=== PATIENT | female | born 1950 | race Caucasian/White ===

== ENCOUNTER 2017-09-12 08:25 | Outpatient (CLI) | payer MEDICARE | END 2017-09-12 08:26 | disposition home or self-care (01) | LOC: MRI 08:25 | PROVIDERS: ATTEND Psychiatry & Neurology Neurology | DX: Z01.812 Encounter for preprocedural laboratory examination (principal); R47.1 Dysarthria and anarthria | CPT/HCPCS: 70553; 82565 ==

== ENCOUNTER 2017-09-14 14:39 | Outpatient (CLI) | payer MEDICARE | END 2017-09-14 14:40 | disposition home or self-care (01) | LOC: BICMAMMO 14:39 | PROVIDERS: ATTEND Internal Medicine Geriatric Medicine | DX: Z08 Encounter for follow-up examination after completed treatment for malignant neoplasm (principal); Z90.11 Acquired absence of right breast and nipple; Z85.3 Personal history of malignant neoplasm of breast | CPT/HCPCS: 77066; G0279 ==

== ENCOUNTER 2017-09-25 07:54 | Outpatient (CLI) | payer MEDICARE ==
--- NOTE | 2017-09-25 10:11 | ULT ---
RIGHT LOWER EXTREMITY VENOUS ULTRASOUND WITH DOPPLER: Date: 09/25/17 HISTORY: Right lower extremity pain. COMPARISON: None. TECHNIQUE: Mcelroy scale, color flow, Doppler imaging, and spectral waveform analysis performed of the right lower extremity deep venous system. FINDINGS: There is compressibility, presence of flow, and augmentation in the common femoral, femoral vein, and popliteal vein. There is flow in greater saphenous vein, profunda vein, and posterior tibial vein. IMPRESSION: No evidence of thrombus in the right lower extremity deep venous system. POS: [facility]
== END 2017-09-25 07:55 | disposition home or self-care (01) ==
LOC: ULT 07:54
PROVIDERS: ATTEND Internal Medicine Geriatric Medicine
DX: M79.604 Pain in right leg (principal)

== ENCOUNTER 2017-09-27 17:15 | Emergency (ER) | payer MEDICARE ==
[2017-09-27 18:12] LABS: #Lymphocytes 0.9 thou/uL (1.20-3.40); #Monocytes 0.3 thou/uL (0.11-0.59); #Neutrophils 4.7 thou/uL (1.40-6.50); %Basophils 0.3 % (0.0-1.0); %Eosinophils 0.2 % (0.0-10.0); %Lymphocytes 14.9 % (21.0-51.0); %Monocytes 5.5 % (0.0-10.0); %Neutrophils 79.1 % (42.0-75.0); Hemoglobin 14.1 g/dL (12.0-16.0); Mean Corpuscular HGB CONC 33.8 g/dL (32.0-36.0); Mean Corpuscular Hemoglobin 33.2 pg (27.0-31.0); Mean Corpuscular Volume 98.2 fL (78.0-98.0); Mean Platelet Volume 7.3 fL (7.4-10.4); Platelet Count 201 thou/uL (130-400); RBC Distribution Width 13.2 % (11.5-14.5); Red Blood Cell (RBC) Count 4.26 mill/uL (4.20-5.40)
[2017-09-27 18:24] LABS: ALT (SGPT) 79 U/L (8-55); AST (SGOT) 60 U/L (5-34); Albumin 4.1 g/dL (3.4-4.8); Alkaline Phosphatase 50 U/L (40-150); Anion Gap 12 mmol/L (10-20); BUN (Urea Nitrogen) 21 mg/dL (9.8-20.1); Bilirubin, Total 0.6 mg/dL (0.2-1.2); Calc. Creatinine Clearance 0 mL/min (70-130); Calcium 9.7 mg/dL (7.8-10.44); Carbon Dioxide 26 mmol/L (23-31); Chloride 104 mmol/L (98-107); Estimated GFR-MDRD 71; Glucose 120 mg/dL (80-115); Potassium 4.2 mmol/L (3.5-5.1); Protein, Total 7.1 g/dL (6.0-8.3); Sodium 138 mmol/L (136-145)
[2017-09-27 18:29] LABS: CKMB 3.2 ng/mL (0-6.6); Troponin I Less than 0.010 ng/mL (< 0.028)
--- NOTE | 2017-09-27 18:45 | RAD ---
RADIOGRAPH CHEST 2 VIEWS: 09/27/17 HISTORY: 66-year-old female with acute chest pain. FINDINGS: The thoracic aorta is tortuous and ectatic. There is no evidence of air space density, pneumothorax, or pulmonary edema. There is no cardiomegaly or pleural effusion. IMPRESSION: 1) No acute cardiopulmonary findings. 2) Ectasia of thoracic aorta. marija [] POS: [facility]
[2017-09-27 19:24] LABS: Bilirubin Negative (Negative); Blood, Urine Trace (Negative); Clarity CLEAR (Clear); Glucose, Urine (Dipstick) Negative (Negative); Leukocyte Trace (Negative); Nitrite Negative (Negative); Protein, Urine (Dipstick) Negative (Neg-Trace); Specific Gravity, Urine 1.004 (1.002-1.036); Urobilinogen 0.2 mg/dL (0.2-1.0)
[2017-09-27 19:34] LABS: RBC/HPF 0-3 HPF (0-3); Squamous Epithelial 0-3 HPF (0-3); WBC/HPF 0-3 HPF (0-3)
[2017-09-27 19:35] LABS: Bacteria/HPF Rare-Few HPF (None Seen); Hyaline Casts/LPF NONE SEEN LPF (0-3 Hyaline)
== END 2017-09-27 21:07 | disposition home or self-care (01) ==
LOC: ERS 17:15
DX: R07.9 Chest pain, unspecified (principal); R10.13 Epigastric pain; F31.9 Bipolar disorder, unspecified; Z79.899 Other long term (current) drug therapy
CPT/HCPCS: 36415; 71046; 80053; 81003; 81015; 82553; 84484; 85025; 93005

== ENCOUNTER 2018-09-16 09:47 | Outpatient (CLI) | payer MEDICARE ==
--- NOTE | 2018-09-16 10:31 | MMO ---
Bilateral MAMMO Bilat Diag [facility]. CLINICAL HISTORY: Patient is 67 years old and is seen for diagnostic exam. The patient has no family history of breast cancer. The patient has a history of malignant (generic) in the right breast in 2013. The patient has a history of right Lumpectomy in 2013 - malignant. VIEWS: The views performed were: bilateral craniocaudal with tomosynthesis; bilateral mediolateral oblique with tomosynthesis; and bilateral mediolateral. FILMS COMPARED: The present examination has been compared to prior imaging studies performed at [facility] on 09/14/2017, and at [facility] on 03/05/2014, 05/28/2015 and 05/29/2016. MAMMOGRAM FINDINGS: There are scattered fibroglandular densities. There are stable benign appearing calcifications seen in both breasts. There are no suspicious masses, suspicious calcifications, or new areas of architectural distortion. IMPRESSION: THERE IS NO MAMMOGRAPHIC EVIDENCE OF MALIGNANCY. A ROUTINE FOLLOW-UP MAMMOGRAM IN 1 YEAR IS RECOMMENDED. THE RESULTS OF THIS EXAM WERE SENT TO THE PATIENT. ACR BI-RADS Category 2 - Benign finding MAMMOGRAPHY NOTE: 1. A negative mammogram report should not delay a biopsy if a dominant of clinically suspicious mass is present. 2. Approximately 10% to 15% of breast cancers are not detected by mammography. 3. Adenosis and dense breasts may obscure an underlying neoplasm.
== END 2018-09-16 09:48 | disposition home or self-care (01) ==
LOC: BICMAMMO 09:47
PROVIDERS: ATTEND Internal Medicine Geriatric Medicine
DX: Z08 Encounter for follow-up examination after completed treatment for malignant neoplasm (principal); Z85.3 Personal history of malignant neoplasm of breast
CPT/HCPCS: 77066; G0279

== ENCOUNTER 2019-03-19 15:06 | Outpatient (CLI) | payer MEDICARE ==
--- NOTE | 2019-03-19 16:05 | MRI ---
MRI BRAIN WITHOUT CONTRAST: HISTORY: Aphasia FINDINGS: No restricted diffusion is seen. There are multiple foci of T2 prolongation in the periventricular wh ite matter, consistent with chronic small vessel ischemic disease. There is ventricular sulci prominence. The ventricular size is appropriate and the basilar cisterns are patent. No evidence of acute infarct, hemorrhage, midline shift or abnormal extra-axial fluid collections is seen. The visualized paranasal sinuses and mastoid air cells are well-aerated. IMPRESSION: No evidence of acute intracranial process.
== END 2019-03-19 15:07 | disposition home or self-care (01) ==
LOC: TBSIIMAG 15:06
PROVIDERS: ATTEND Family Medicine
DX: R47.01 Aphasia (principal)
CPT/HCPCS: 70551

== ENCOUNTER 2019-05-25 17:56 | Emergency (ER) | payer MEDICARE ==
[~2019-05-25 17:56] MED LIST: Iopamidol-370 76% 500 ML 1 ML ONE
[2019-05-25 18:58] LABS: #Lymphocytes 1.3 thou/uL (1.20-3.40); #Monocytes 0.8 thou/uL (0.11-0.59); #Neutrophils 5.9 thou/uL (1.40-6.50); %Basophils 0.6 % (0.0-1.0); %Eosinophils 0.3 % (0.0-10.0); %Lymphocytes 16.5 % (21.0-51.0); %Monocytes 9.7 % (0.0-10.0); Hemoglobin 15.1 g/dL (12.0-16.0); Mean Corpuscular HGB CONC 34.3 g/dL (32.0-36.0); Mean Corpuscular Hemoglobin 34.3 pg (27.0-31.0); Mean Platelet Volume 7.2 fL (7.4-10.4); Platelet Count 244 thou/uL (130-400); RBC Distribution Width 13.2 % (11.5-14.5); White Blood Cell (WBC) Count 8.1 thou/uL (4.8-10.8)
[2019-05-25 19:00] LABS: ALT (SGPT) 35 U/L (8-55); AST (SGOT) 51 U/L (5-34); Albumin 4.1 g/dL (3.4-4.8); Alkaline Phosphatase 47 U/L (40-110); Anion Gap 15 mmol/L (10-20); BUN (Urea Nitrogen) 18 mg/dL (9.8-20.1); Bilirubin, Total 0.4 mg/dL (0.2-1.2); Calc. Creatinine Clearance 0 mL/min (70-130); Carbon Dioxide 26 mmol/L (23-31); Chloride 104 mmol/L (98-107); Estimated GFR-MDRD 63; Globulin 3.4 g/dL (2.4-3.5); Glucose 91 mg/dL (80-115); Lipase 147 U/L (8-78); Potassium 4.8 mmol/L (3.5-5.1); Protein, Total 7.5 g/dL (6.0-8.3); Sodium 140 mmol/L (136-145)
[2019-05-25 19:19] LABS: Bilirubin Negative (Negative); Blood, Urine 1+ (Negative); Clarity Extra Turbid (Clear); Glucose, Urine (Dipstick) Normal (Negative); Leukocyte 25 Leu/uL (Negative); Nitrite Negative (Negative); Protein, Urine (Dipstick) Negative (Neg-Trace); Squamous Epithelial None Seen HPF (0-3); Urobilinogen Normal mg/dL (Less than 2)
[2019-05-25 19:28] LABS: Bacteria/HPF 1+ HPF (None Seen)
--- NOTE | 2019-05-25 19:35 | CT ---
CT abdomen and pelvis with IV contrast HISTORY: Abdominal pain. FINDINGS: No comparison. Lung bases are clear. Gallbladder surgically absent. Small fragments of meta llic shrapnel present within the right liver lobe. No evidence of complication. The spleen, kidneys, adrenal glands, and pancreas are unremarkable. There is calcification throughout the arteria l structures. No enlarged lymph nodes or free fluid. Urinary bladder is incompletely distended. Large amount of stool throughout the colon. No evidence of bowel obstruction. There are degenerative changes throughout the lumbar spine. IMPRESSION: Constipation. Atherosclerosis. No acute abnormalities otherwise demonstrated.
== END 2019-05-25 20:49 | disposition home or self-care (01) ==
LOC: ERS 17:56
DX: K59.00 Constipation, unspecified (principal); F31.9 Bipolar disorder, unspecified; Z79.899 Other long term (current) drug therapy
CPT/HCPCS: 36415; 74177; 80053; 81003; 81015; 83690; 85025; 96360; Q9967

== ENCOUNTER 2019-09-18 10:05 | Outpatient (CLI) | payer MEDICARE ==
--- NOTE | 2019-09-18 11:04 | MMO ---
Bilateral MAMMO Bilat Screen [facility]. CLINICAL HISTORY: Patient is 68 years old and is seen for screening. The patient has no family history of breast cancer. The patient has a history of malignant (generic) in the right breast in 2013. The patient has a history of right Lumpectomy in 2013 - malignant. VIEWS: The views performed were: bilateral craniocaudal with tomosynthesis and bilateral mediolateral oblique with tomosynthesis. FILMS COMPARED: The present examination has been compared to prior imaging studies performed at [facility] on 09/14/2017 and 09/16/2018, and at [facility] on 05/28/2015 and 05/29/2016. This study has been interpreted with the assistance of computer-aided detection. MAMMOGRAM FINDINGS: There are scattered fibroglandular densities. Finding 1: There are stable benign appearing calcifications seen in both breasts. Finding 2: There is a stable post-surgical scar seen in the right breast. There are no suspicious masses, suspicious calcifications, or new areas of architectural distortion. IMPRESSION: THERE IS NO MAMMOGRAPHIC EVIDENCE OF MALIGNANCY. A ROUTINE FOLLOW-UP MAMMOGRAM IN 1 YEAR IS RECOMMENDED. THE RESULTS OF THIS EXAM WERE SENT TO THE PATIENT. ACR BI-RADS Category 2 - Benign finding MAMMOGRAPHY NOTE: 1. A negative mammogram report should not delay a biopsy if a dominant of clinically suspicious mass is present. 2. Approximately 10% to 15% of breast cancers are not detected by mammography. 3. Adenosis and dense breasts may obscure an underlying neoplasm. Reported by: RICH RAMON MD Electonically Signed: [id number]
== END 2019-09-18 10:06 | disposition home or self-care (01) ==
LOC: BICMAMMO 10:05
PROVIDERS: ATTEND Family Medicine
DX: Z12.31 Encounter for screening mammogram for malignant neoplasm of breast (principal); Z85.3 Personal history of malignant neoplasm of breast; Z98.890 Other specified postprocedural states
CPT/HCPCS: 77063; 77067

== ENCOUNTER 2020-09-20 09:52 | Outpatient (CLI) | payer MEDICARE | END 2020-09-20 09:53 | disposition home or self-care (01) | LOC: BICMAMMO 09:52 | PROVIDERS: ATTEND Family Medicine | DX: Z12.31 Encounter for screening mammogram for malignant neoplasm of breast (principal); Z13.820 Encounter for screening for osteoporosis; K59.01 Slow transit constipation; Z85.3 Personal history of malignant neoplasm of breast; Z98.890 Other specified postprocedural states; M85.852 Other specified disorders of bone density and structure, left thigh; M85.851 Other specified disorders of bone density and structure, right thigh | CPT/HCPCS: 77063; 77067; 77080 ==

== ENCOUNTER 2020-09-22 08:29 | Outpatient (CLI) | payer MEDICARE | END 2020-09-22 08:30 | disposition home or self-care (01) | LOC: BICMAMMO 08:29 | PROVIDERS: ATTEND Family Medicine | DX: N63.12 Unspecified lump in the right breast, upper inner quadrant (principal); N62 Hypertrophy of breast; N60.31 Fibrosclerosis of right breast; Q83.9 Congenital malformation of breast, unspecified | CPT/HCPCS: 19083; 76642; 77065; 88305; 88342; G0279 ==

== ENCOUNTER 2021-09-28 07:56 | Inpatient (IN) | payer MEDICARE ==
[2021-09-28] MEDS ORDERED: Ondansetron ODT 4 MG TAB ONE (08:53)
[2021-09-28 09:19] LABS: #Lymphocytes 0.9 thou/uL (1.20-3.40); #Monocytes 0.6 thou/uL (0.11-0.59); #Neutrophils 8.5 thou/uL (1.40-6.50); %Basophils 0.1 % (0.0-1.0); %Eosinophils 0.3 % (0.0-10.0); %Lymphocytes 8.7 % (21.0-51.0); %Monocytes 5.8 % (0.0-10.0); %Neutrophils 85.1 % (42.0-75.0); Hemoglobin 13.7 g/dL (12.0-16.0); Mean Platelet Volume 7.4 fL (7.4-10.4); Platelet Count 217 thou/uL (130-400); White Blood Cell (WBC) Count 9.9 thou/uL (4.8-10.8)
[2021-09-28 09:38] LABS: ALT (SGPT) 47 U/L (8-55); AST (SGOT) 57 U/L (5-34); Albumin 4.3 g/dL (3.4-4.8); Alkaline Phosphatase 57 U/L (40-110); Anion Gap 15 mmol/L (10-20); BUN (Urea Nitrogen) 22 mg/dL (9.8-20.1); Bilirubin, Total 0.5 mg/dL (0.2-1.2); Calc. Creatinine Clearance 0 mL/min (70-130); Calcium 9.5 mg/dL (7.8-10.44); Carbon Dioxide 24 mmol/L (23-31); Chloride 106 mmol/L (98-107); Estimated GFR 67; Globulin 3.4 g/dL (2.4-3.5); Glucose 117 mg/dL (83-110); Lipase 42 U/L (8-78); Potassium 3.8 mmol/L (3.5-5.1); Protein, Total 7.7 g/dL (5.8-8.1); Sodium 141 mmol/L (136-145)
[2021-09-28] MEDS ORDERED: Iopamidol-370 76% 500 ML 1 ML ONE (11:12)
[2021-09-28] MEDS ORDERED: Fentanyl 100 MCG/2 ML VIAL ONE (11:24)
[2021-09-28] MEDS ORDERED: Lidocaine 5% Patch TD SCH (12:00)
[2021-09-28] MEDS ORDERED: Ondansetron PF 4 MG/2 ML Vial IVP PRN (14:04)
[2021-09-28] MEDS ORDERED: Dextrose 50% Abboject 50 ML SYRINGE SLOW IVP PRN (14:04)
[2021-09-28] MEDS ORDERED: Dextrose 5% in Water 1,000 ML IV PRN (14:04)
[2021-09-28] MEDS ORDERED: Ondansetron ODT 4 MG TAB PO PRN (14:04)
[2021-09-28] MEDS ORDERED: Cyclobenzaprine 10 MG TAB PO PRN (14:08)
[2021-09-28] MEDS ORDERED: traMADol HCl 50 MG TAB PO PRN (14:08)
[2021-09-28] MEDS: Acetaminophen 500 MG TAB PO SCH ×2 (15:10→20:11)
[2021-09-28] MEDS: Gabapentin 100 MG CAP PO SCH ×2 (15:13→23:17)
[2021-09-28] MEDS: traMADol HCl 50 MG TAB PO SCH ×2 (15:14→20:08)
[2021-09-28] MEDS ORDERED: traMADol HCl 50 MG TAB ONE (15:16)
[2021-09-28] MEDS ORDERED: Acetaminophen 500 MG TAB ONE (15:16)
[2021-09-28] MEDS: Famotidine 20 MG TAB PO SCH (20:12)
[2021-09-28 21:00] VITALS: BMI 23.8
[2021-09-28] MEDS ORDERED: Transdermal Patch Removal TOP SCH (23:59)
[2021-09-29] MEDS: Acetaminophen 500 MG TAB PO SCH ×4 (03:09→17:51)
[2021-09-29] MEDS: traMADol HCl 50 MG TAB PO SCH ×4 (03:09→17:58)
[2021-09-29] MEDS: Gabapentin 100 MG CAP PO SCH (06:00)
[2021-09-29] MEDS ORDERED: Levothyroxine Sodium 75 MCG TAB PO SCH (06:00)
[2021-09-29 06:05] LABS: #Eosinphils 0.1 thou/uL (0.0-0.7); #Lymphocytes 1.1 thou/uL (1.20-3.40); #Monocytes 0.7 thou/uL (0.11-0.59); #Neutrophils 3.5 thou/uL (1.40-6.50); %Basophils 0.5 % (0.0-1.0); %Eosinophils 2.3 % (0.0-10.0); %Lymphocytes 20.6 % (21.0-51.0); %Monocytes 12.4 % (0.0-10.0); %Neutrophils 64.3 % (42.0-75.0); Mean Corpuscular HGB CONC 33.4 g/dL (32.0-36.0); Mean Corpuscular Hemoglobin 32.7 pg (27.0-31.0); Mean Corpuscular Volume 98.1 fL (78.0-98.0); Mean Platelet Volume 7.3 fL (7.4-10.4); Platelet Count 192 thou/uL (130-400); RBC Distribution Width 13.2 % (11.5-14.5); Red Blood Cell (RBC) Count 3.97 mill/uL (4.20-5.40); White Blood Cell (WBC) Count 5.4 thou/uL (4.8-10.8)
[2021-09-29 06:26] LABS: Anion Gap 12 mmol/L (10-20); BUN (Urea Nitrogen) 24 mg/dL (9.8-20.1); Calc. Creatinine Clearance 65 mL/min (70-130); Calcium 9.1 mg/dL (7.8-10.44); Carbon Dioxide 27 mmol/L (23-31); Chloride 106 mmol/L (98-107); Estimated GFR 72; Glucose 98 mg/dL (83-110); Magnesium 2.4 mg/dL (1.6-2.6); Phosphorus 4.6 mg/dL (2.3-4.7); Potassium 3.6 mmol/L (3.5-5.1); Sodium 141 mmol/L (136-145)
[2021-09-29] MEDS ORDERED: Primidone 50 MG TAB PO SCH (09:00)
[2021-09-29] MEDS: Famotidine 20 MG TAB PO SCH (09:16)
[2021-09-29] MEDS ORDERED: Gabapentin 100 MG CAP PO SCH (14:00)
[2021-09-29 18:38] VITALS: BP 119/72; TEMP 97.9
[2021-09-29] MEDS ORDERED: Atorvastatin Calcium 10 MG TAB PO SCH (21:00)
[2021-09-29] MEDS ORDERED: Ezetimibe 10 MG TAB PO SCH (21:00)
== END 2021-09-29 18:00 | disposition home or self-care (01) | DRG 200 ==
LOC: ERS 07:56 → ERHOLD 13:48 → SURG B 17:09
PROVIDERS: ADMIT Surgery; ATTEND Surgery
DX: S27.0XXA Traumatic pneumothorax, initial encounter (principal); S22.41XA Multiple fractures of ribs, right side, initial encounter for closed fracture; Z20.822 Contact with and (suspected) exposure to COVID-19; G70.00 Myasthenia gravis without (acute) exacerbation; R13.0 Aphagia; F41.9 Anxiety disorder, unspecified; F31.9 Bipolar disorder, unspecified; W18.30XA Fall on same level, unspecified, initial encounter; Z87.891 Personal history of nicotine dependence; Z85.3 Personal history of malignant neoplasm of breast; Z98.51 Tubal ligation status; Z79.890 Hormone replacement therapy; Z79.899 Other long term (current) drug therapy
CPT/HCPCS: 36415; 71045; 71046; 74177; 76705; 80048; 80053; 83690; 83735; 83880; 84100; 84484; 85025; 93005; 94640; 96374; J3010; J7620; Q0162; Q9967

== ENCOUNTER 2021-10-10 12:02 | Outpatient (CLI) | payer MEDICARE | END 2021-10-10 12:03 | disposition home or self-care (01) | LOC: BICRAD 12:02 | PROVIDERS: ATTEND Surgery | DX: S22.41XG Multiple fractures of ribs, right side, subsequent encounter for fracture with delayed healing (principal) | CPT/HCPCS: 71046 ==

== ENCOUNTER 2021-11-15 12:28 | Outpatient (CLI) | payer MEDICARE | END 2021-11-15 12:29 | disposition home or self-care (01) | LOC: MRI 12:28 | PROVIDERS: ATTEND Family Medicine | DX: R25.1 Tremor, unspecified (principal) | CPT/HCPCS: 70551 ==

== ENCOUNTER 2022-01-26 13:11 | Outpatient (CLI) | payer MEDICARE | END 2022-01-26 13:12 | disposition home or self-care (01) | LOC: ULT 13:11 | PROVIDERS: ATTEND Nurse Practitioner Family | DX: E04.2 Nontoxic multinodular goiter (principal) | CPT/HCPCS: 76536 ==

== ENCOUNTER 2022-04-14 09:35 | Outpatient (CLI) | payer MEDICARE | END 2022-04-14 09:36 | disposition home or self-care (01) | LOC: BICRAD 09:35 | PROVIDERS: ATTEND Nurse Practitioner Family | DX: M25.552 Pain in left hip (principal); M79.18 Myalgia, other site; M47.816 Spondylosis without myelopathy or radiculopathy, lumbar region; M51.36 Other intervertebral disc degeneration, lumbar region; Z91.81 History of falling | CPT/HCPCS: 72100 ==

== ENCOUNTER 2022-05-07 14:11 | Emergency (ER) | payer MEDICARE, BC ==
[2022-05-07 14:47] LABS: #Eosinphils 0.1 thou/uL (0.0-0.7); #Lymphocytes 1.5 thou/uL (1.20-3.40); #Monocytes 0.5 thou/uL (0.11-0.59); #Neutrophils 3.5 thou/uL (1.40-6.50); %Basophils 0.5 % (0.0-1.0); %Eosinophils 1.8 % (0.0-10.0); %Lymphocytes 26.9 % (21.0-51.0); %Monocytes 8.3 % (0.0-10.0); %Neutrophils 62.5 % (42.0-75.0); Hemoglobin 13.6 g/dL (12.0-16.0); Mean Corpuscular HGB CONC 34.1 g/dL (32.0-36.0); Mean Corpuscular Hemoglobin 32.9 pg (27.0-31.0); Mean Corpuscular Volume 96.4 fl (78.0-98.0); Mean Platelet Volume 7.5 fL (7.4-10.4); Platelet Count 215 10x3/uL (130-400); RBC Distribution Width 12.7 % (11.5-14.5); Red Blood Cell (RBC) Count 4.14 mill/uL (4.20-5.40); White Blood Cell (WBC) Count 5.6 10x3/uL (4.8-10.8)
[2022-05-07 15:10] LABS: ALT (SGPT) 14 U/L (8-55); AST (SGOT) 21 U/L (5-34); Albumin 4.3 g/dL (3.4-4.8); Alkaline Phosphatase 49 U/L (40-110); Anion Gap 11 mmol/L (10-20); BUN (Urea Nitrogen) 13 mg/dL (9.8-20.1); Bilirubin, Total 0.6 mg/dL (0.2-1.2); Calc. Creatinine Clearance 0 mL/min (70-130); Calcium 9.6 mg/dL (7.8-10.44); Carbon Dioxide 26 mmol/L (23-31); Chloride 105 mmol/L (98-107); Estimated GFR 79; Globulin 3.4 g/dL (2.4-3.5); Glucose 96 mg/dL (83-110); Lipase 79 U/L (8-78); Potassium 3.1 mmol/L (3.5-5.1); Protein, Total 7.7 g/dL (5.8-8.1); Sodium 139 mmol/L (136-145)
[2022-05-07 17:36] LABS: Actual Bicarbonate (HCO3v) 26 mEq/L (22-28); Analyzer IN Cardio ER; Base Excess 0.8 mEq/L (-2.0 to +3.0); Calcium, Ionized (venous) 1.15 mmol/L (1.16-1.32); Chloride (VBG) 106 mmol/L (98-106); Hemoglobin (Hb) 13.6 g/dL (11.7-16.1); Potassium (VBG) 3.18 mmol/L (3.70-5.30); Sodium 141.6 mmol/L (133-146); pH (venous) 7.41 (7.32-7.43)
[2022-05-07 18:01] LABS: Magnesium 2.2 mg/dL (1.6-2.6)
[2022-05-07 18:03] LABS: Acetaminophen Less than 10.0 mcg/mL (10.0-30.0); Alcohol Less than 10 mg/dL (Less than 10); Salicylate Less than 8.0 mg/dL (15.0-30.0)
[2022-05-07 21:20] LABS: Amphetamine Not Detected (NotDetected); Barbiturates Screen Not Detected (NotDetected); Benzodiazepine Screen Not Detected (NotDetected); Cocaine Metabolite Screen Not Detected (NotDetected); Methadone Not Detected (NotDetected); Methamphetamine Not Detected (NotDetected); Opiate Screen Not Detected (NotDetected); Oxycodone Screen Not Detected (NotDetected); Phencyclidine (PCP) Not Detected (NotDetected); THC/Cannabinoid Screen Not Detected (NotDetected); Tricyclic Screen Not Detected (NotDetected)
[2022-05-07 21:25] LABS: Bacteria/HPF 4+ HPF (None Seen); Bilirubin Negative (Negative); Blood, Urine Negative (Negative); Clarity Clear (Clear); Glucose, Urine (Dipstick) Normal (Negative); Ketone, Urine Negative (Negative); Leukocyte 25 Leu/uL (Negative); Nitrite Negative (Negative); Protein, Urine (Dipstick) Negative (Neg-Trace); RBC/HPF 0-3 HPF (0-3); Specific Gravity, Urine 1.022 (1.002-1.036); Squamous Epithelial None Seen HPF (0-3); Urobilinogen Normal mg/dL (Less than 2)
== END 2022-05-07 22:17 | disposition home or self-care (01) ==
LOC: ERS 14:11
DX: N39.0 Urinary tract infection, site not specified (principal); R45.1 Restlessness and agitation; Z79.899 Other long term (current) drug therapy
CPT/HCPCS: 36415; 70450; 71045; 74177; 80053; 80306; 80307; 81003; 81015; 82805; 83605; 83690; 83735; 84484; 85025; 93005

== ENCOUNTER 2022-05-23 13:43 | Emergency (ER) | payer MEDICARE, BC ==
[2022-05-23] MEDS ORDERED: Boostrix 0.5 ML (Tdap) VIAL (>/=7 yrs of age) ONE (16:32)
== END 2022-05-23 16:55 | disposition home or self-care (01) ==
LOC: ERS 13:43
DX: S01.81XA Laceration without foreign body of other part of head, initial encounter (principal); S60.222A Contusion of left hand, initial encounter; I10 Essential (primary) hypertension; W19.XXXA Unspecified fall, initial encounter; Z79.899 Other long term (current) drug therapy; Z23 Encounter for immunization
CPT/HCPCS: 12011; 70450; 72125; 90471; 90715

== ENCOUNTER 2022-06-16 07:42 | Outpatient (CLI) | payer MEDICARE, BC | END 2022-06-16 07:43 | disposition home or self-care (01) | LOC: NM 07:42 | PROVIDERS: ATTEND Psychiatry & Neurology Neurology | DX: G70.00 Myasthenia gravis without (acute) exacerbation (principal) | CPT/HCPCS: 78803; A9584 ×2 ==

== ENCOUNTER 2022-07-18 20:49 | Emergency (ER) | payer MEDICARE, BC ==
[2022-07-18 22:28] LABS: #Eosinphils 0.1 thou/uL (0.0-0.7); #Monocytes 0.5 thou/uL (0.11-0.59); #Neutrophils 5.9 thou/uL (1.40-6.50); %Basophils 0.4 % (0.0-1.0); %Eosinophils 0.8 % (0.0-10.0); %Lymphocytes 13.8 % (21.0-51.0); %Monocytes 6.4 % (0.0-10.0); %Neutrophils 78.6 % (42.0-75.0); Mean Corpuscular HGB CONC 33.5 g/dL (32.0-36.0); Mean Corpuscular Hemoglobin 33.4 pg (27.0-31.0); Mean Corpuscular Volume 99.7 fl (78.0-98.0); Mean Platelet Volume 7.2 fL (7.4-10.4); Platelet Count 277 10x3/uL (130-400); RBC Distribution Width 14.4 % (11.5-14.5); White Blood Cell (WBC) Count 7.5 10x3/uL (4.8-10.8)
[2022-07-18 22:37] LABS: INR-International Normal Ratio 1.1; PTT 33.6 sec (22.9-36.1); Prothrombin Time 14.9 sec (12.0-14.7)
[2022-07-18 22:48] LABS: ALT (SGPT) 23 U/L (8-55); AST (SGOT) 29 U/L (5-34); Albumin 4.2 g/dL (3.4-4.8); Alkaline Phosphatase 51 U/L (40-110); Anion Gap 13 mmol/L (10-20); BUN (Urea Nitrogen) 15 mg/dL (9.8-20.1); Bilirubin, Total 0.4 mg/dL (0.2-1.2); Calc. Creatinine Clearance 0 mL/min (70-130); Calcium 9.3 mg/dL (7.8-10.44); Carbon Dioxide 27 mmol/L (23-31); Chloride 107 mmol/L (98-107); Estimated GFR 71; Globulin 3.4 g/dL (2.4-3.5); Glucose 97 mg/dL (83-110); Potassium 3.5 mmol/L (3.5-5.1); Protein, Total 7.6 g/dL (5.8-8.1); Sodium 143 mmol/L (136-145)
== END 2022-07-19 02:20 | disposition home or self-care (01) ==
LOC: ERS 20:49
DX: S00.81XA Abrasion of other part of head, initial encounter (principal); W18.30XA Fall on same level, unspecified, initial encounter; Z87.891 Personal history of nicotine dependence
CPT/HCPCS: 36415; 70450; 70486; 72125; 80053; 85025; 85610; 85730

== ENCOUNTER 2022-11-23 12:26 | Outpatient (CLI) | payer MEDICARE, BC | END 2022-11-23 12:27 | disposition home or self-care (01) | LOC: BICMAMMO 12:26 | PROVIDERS: ATTEND Family Medicine | DX: Z12.31 Encounter for screening mammogram for malignant neoplasm of breast (principal); Z85.3 Personal history of malignant neoplasm of breast; Z98.890 Other specified postprocedural states | CPT/HCPCS: 77063; 77067 ==

== ENCOUNTER 2022-12-11 12:54 | Outpatient (CLI) | payer MEDICARE, BC ==
[~2022-12-11 12:54] MED LIST changes: +Iopamidol 370 76% 100 ML VIAL ONE; -Iopamidol-370 76% 500 ML 1 ML ONE
== END 2022-12-11 12:55 | disposition home or self-care (01) ==
LOC: CT 12:54
PROVIDERS: ATTEND Urology
DX: N13.30 Unspecified hydronephrosis (principal)
CPT/HCPCS: 74178; 82565; Q9967